=== PATIENT | male | born 1965 | race Two or more races ===

== ENCOUNTER 2021-09-23 14:38 | Emergency (ER) | payer OTHER ==
[~2021-09-23] VITALS: Ht 177.8 cm; Wt 79.4 kg
[2021-09-23] MEDS ORDERED: LANTUS SOL100 UNIT/1 SQ (15:30)
[2021-09-23] MEDS ORDERED: METFORMIN HCL1000 M2 PO (15:30)
== END 2021-09-23 19:49 | disposition left against medical advice (07) ==
LOC: ER 14:38
DX: Z53.21 Procedure and treatment not carried out due to patient leaving prior to being seen by health care provider (principal)

== ENCOUNTER 2021-11-30 11:09 | Emergency (ER) | payer OTHER ==
[~2021-11-30] VITALS: Ht 177.8 cm; Wt 77.1 kg
[~2021-11-30 11:09] MED LIST: LANTUS SOL100 UNIT/1 SQ; METFORMIN HCL1000 M2 PO
[2021-11-30] MEDS ORDERED: KETO10TA2 PO (14:33)
== END 2021-11-30 15:09 | disposition home or self-care (01) ==
LOC: ER 11:09
DX: H57.11 Ocular pain, right eye (principal); E11.9 Type 2 diabetes mellitus without complications; Z79.4 Long term (current) use of insulin; Z79.84 Long term (current) use of oral hypoglycemic drugs; I10 Essential (primary) hypertension

== ENCOUNTER 2023-03-29 08:05 | Emergency (ER) | payer OTHER ==
[~2023-03-29] VITALS: Ht 177.8 cm; Wt 81.6 kg
[~2023-03-29 08:05] MED LIST changes: +KETO10TA2 PO
[2023-03-29] MEDS ORDERED: CATAPRES0.3 MG PO (08:12)
[2023-03-29] MEDS ORDERED: VASOTEC5 MG PO (08:13)
[2023-03-29] MEDS ORDERED: GLUMETZA1000 MG PO (08:13)
[2023-03-29] MEDS ORDERED: KETOROLAC TROMETHAMINE 60 MG VIAL IM ONE (08:45)
[2023-03-29 09:33] LABS: HEMATOCRIT 44.1 % (39.0-48.0); MEAN CELL VOLUME 88.9 fL (80.0-100.00); MEAN CORPUSCULAR HEMOGLOBIN 30.3 pg (27.00-32.0); MEAN CORPUSCULAR HGB CONC 34.1 g/dl (32.0-36.0); PLATELET COUNT 158 K/uL (150-450); RED BLOOD COUNT 4.96 M/uL (4.00-6.00); RED CELL DISTRIBUTION WIDTH 13.5 % (11.5-14.5)
[2023-03-29 09:36] LABS: URINE APPEARANCE Clear; URINE BILIRRUBIN Negative (NEGATIVE); URINE BLOOD Negative; URINE COLOR Dark Yellow; URINE GLUCOSE Negative (NEGATIVE); URINE LEUKOCYTE Negative; URINE NITRATE Negative; URINE PROTEIN Trace (NEGATIVE)
[2023-03-29 09:37] LABS: URINE BACTERIA 54.1 uL (0.0-1933); URINE EPITHELIAL CELLS 8.1 uL (0.0-38.8); URINE RBC 3.1 uL (0.0-20.8)
== END 2023-03-29 13:03 | disposition home or self-care (01) ==
LOC: ER 08:05
PROVIDERS: Emergency Medicine
DX: R10.9 Unspecified abdominal pain (principal); E11.9 Type 2 diabetes mellitus without complications; Z79.4 Long term (current) use of insulin; I10 Essential (primary) hypertension